=== PATIENT | female | born 1975 | race Caucasian/White ===

== ENCOUNTER 2017-03-27 18:55 | Emergency (ER) | payer MEDICAID, OTHER ==
[~2017-03-27] VITALS: Wt 60.5 kg
[~2017-03-27 18:55] MED LIST: NITR-58 PO
[2017-03-27] MEDS ORDERED: SOD CHLORIDE 0.9% 1,000 ML IV STA (20:59)
[2017-03-27] MEDS ORDERED: ENALAPRILAT 1.25 MG INJ IV ONE (21:00)
[2017-03-27 21:33] LABS: BASOPHILS % 0.1 % (0.0-2.0); EOSINOPHILS # 0.1 10^3/ul (0.0-0.5); EOSINOPHILS % 0.8 % (0.0-7.0); HEMATOCRIT 37.8 % (37.0-47.0); HEMOGLOBIN 12.5 g/dl (12.0-16.0); LYMPHOCYTES % 42.5 % (15.0-51.0); MEAN CORPUSCULAR HEMOGLOBIN 29.2 pg (29.0-33.0); MEAN CORPUSCULAR HGB CONC 33.1 g/dl (32.0-37.0); MEAN CORPUSCULAR VOLUME 88.3 fl (82.0-101.0); MEAN PLATELET VOLUME 11.6 fl (7.4-10.4); MONOCYTE # 0.7 10^3/ul (0.3-0.9); MONOCYTES % 10.1 % (0.0-11.0); NEUTROPHIL # 3.3 10^3/ul (1.6-7.5); NEUTROPHILS % 46.4 % (39.0-77.0); PLATELET COUNT 226 10^3/UL (140-415); RED BLOOD COUNT 4.28 10^6/ul (4.20-5.40); RED CELL DISTRIBUTION WIDTH 13.7 % (11.5-14.5); WHITE BLOOD COUNT 7.1 10^3/ul (4.8-10.8)
[2017-03-27 21:38] LABS: ADD UMIC YES; UR ASCORBIC ACID NEGATIVE (NEGATIVE); UR BILIRUBIN (Dip) NEGATIVE (NEGATIVE); UR BLOOD (Dip) 1+ mg/dL (NEGATIVE); UR CLARITY CLEAR (CLEAR); UR COLOR YELLOW (YELLOW); UR GLUCOSE (Dip) NEGATIVE (NEGATIVE); UR KETONES (Dip) NEGATIVE (NEGATIVE); UR LEUKOCYTE ESTERASE (Dip) NEGATIVE Leu/ul (NEGATIVE); UR NITRITE (Dip) NEGATIVE (NEGATIVE); UR RBC 3 /HPF (0-5); UR SPECIFIC GRAVITY (Dip) 1.015 (1.003-1.030); UR SQUAMOUS EPITHELIAL CELL FEW /HPF (FEW); UR TOTAL PROTEIN (Dip) NEGATIVE (NEGATIVE); UR UROBILINOGEN (Dip) NEGATIVE (NEGATIVE)
[2017-03-27 21:54] LABS: ALBUMIN 3.7 g/dl (3.3-4.9); CALCIUM 9.1 mg/dl (8.4-10.2); CREATININE 0.84 mg/dl (0.44-1.00); POTASSIUM 4.4 mmol/L (3.5-5.1); TOTAL PROTEIN 7.4 g/dl (6.1-8.1)
[2017-03-27 23:01] LABS: FREE T3 3.74 pg/ml (2.77-5.27)
[2017-03-27 23:15] LABS: THYROID STIMULATING HORMONE 2.26 MIU/L (0.465-4.680)
[2017-03-27 23:40] VITALS: BP 128/86; PULSE 65; RESP 16
--- NOTE | 2017-03-28 16:21 | ERD ---
ER Documentation Chief Complaint Chief Complaint numbness both hands/headache x 2 days HPI 41-year-old woman presents with complaints of orange discoloration of the palms and soles. She states she has noticed this discoloration for the last 2 days. She denies excessive oral intake of carrots or other orange vegetables, denies excessive vitamin A or E intake, denies contact with new soaps or dyes, denies weight loss or weight gain, no fevers or chills, no domestic violence, no complaints of chest pain or shortness of breath. Patient also has intermittent paresthesias but states she does not have paresthesias at the moment. ROS All systems reviewed and are negative except as per history of present illness. Medications Home Meds Active Scripts Nitrofurantoin Monohyd Macrocr* (Macrobid*) 100 Mg Capsr, 100 MG PO HS for 7 Days, CAP Prov:OSMIN SHARMA MD 01/13/16 PMhx/Soc Medical and Surgical Hx: pt denies Surgical Hx History of Surgery: Yes (OVARY REMOVAL) Hx Cardiac Disorders: Yes (HTN) Hx Alcohol Use: No Hx Substance Use: No Hx Tobacco Use: No Smoking Status: Never smoker FmHx Family History: No diabetes Physical Exam Vitals Vital Signs Date Time Temp Pulse Resp B/P Pulse Ox O2 Delivery O2 Flow Rate FiO2 03/27/17 23:40 65 16 128/86 98 03/27/17 21:10 149/96 03/27/17 19:01 97.8 78 20 180/109 98 Physical Exam GENERAL: Well-developed, well-nourished, well-hydrated, in no apparent distress , looks nontoxic in appearance HEENT: Moist mucous membranes, pink conjunctiva, no cervical spine tenderness or step-off deformities, no goiter, no jaundice or icterus, extraocular movements intact without pain. No submandibular induration, and no pharyngeal erythema NEURO: Alert and oriented 3, cranial nerves II through XII intact bilaterally, pupils equal round reactive to light, no focal deficits or facial asymmetry, sensation intact distally Strength 5/5 in upper and lower extremities bilaterally CARDIAC: Regular rate and rhythm, no murmurs rubs or gallops LUNGS: Clear bilaterally no wheezing crackles or stridor ABDOMEN: Soft nontender, no guarding, no rigidity, no rebound, no psoas sign no obturator sign. Normoactive bowel sounds SKIN: Warm and dry to touch, no abrasions, contusions, or hematomas, no lacerations, no ecchymosis, no target lesions, and without ulcers EXTREMITIES: No clubbing cyanosis or edema, calves are bilaterally symmetrical, no Homans sign, no popliteal cord sign. Distal pulses equal and bilateral PSYCH: Anxious appearing Result Diagram: 03/27/17212303/27/172123 Results 24 hrs Laboratory Tests Test 03/27/17 20:43 03/27/17 21:24 Urine Color YELLOW Urine Clarity CLEAR Urine pH 6.0 Urine Specific [place] 1.015 Urine Ketones NEGATIVEmg/dL Urine Nitrite NEGATIVEmg/dL Urine Bilirubin NEGATIVEmg/dL Urine Urobilinogen NEGATIVEmg/dL Urine Leukocyte Esterase NEGATIVELeu/ul Urine Microscopic RBC 3/HPF Urine Microscopic WBC 1/HPF Urine Squamous Epithelial Cells FEW/HPF Urine Hemoglobin 1+mg/dL Urine Glucose NEGATIVEmg/dL Urine Total Protein NEGATIVEmg/dl White Blood Count 7.110^3/ul Red Blood Count 4.2810^6/ul Hemoglobin 12.5g/dl Hematocrit 37.8% Mean Corpuscular Volume 88.3fl Mean Corpuscular Hemoglobin 29.2pg Mean Corpuscular Hemoglobin Concent 33.1g/dl Red Cell Distribution Width 13.7% Platelet Count 55365^3/UL Mean Platelet Volume 11.6fl Neutrophils % 46.4% Lymphocytes % 42.5% Monocytes % 10.1% Eosinophils % 0.8% Basophils % 0.1% Nucleated Red Blood Cells % 0.0/100WBC Neutrophils # 3.310^3/ul Lymphocytes # 3.010^3/ul Monocytes # 0.710^3/ul Eosinophils # 0.110^3/ul Basophils # 0.010^3/ul Nucleated Red Blood Cells # 0.010^3/ul Sodium Level 139mmol/L Potassium Level 4.4mmol/L Chloride Level 105mmol/L Carbon Dioxide Level 28mmol/L Anion Gap 10 Blood Urea Nitrogen 16mg/dl Creatinine 0.84mg/dl Glucose Level 92mg/dl Calcium Level 9.1mg/dl Total Bilirubin 0.0mg/dl Direct Bilirubin 0.00mg/dl Indirect Bilirubin 0.0mg/dl Aspartate Amino Transf (AST/SGOT) 18IU/L Alanine Aminotransferase (ALT/SGPT) 31IU/L Alkaline Phosphatase 67IU/L Total Protein 7.4g/dl Albumin 3.7g/dl Globulin 3.70g/dl Albumin/Globulin Ratio 1.00 Lipase 198U/L Thyroid Stimulating Hormone (TSH) 2.260MIU/L Free Thyroxine 1.00ng/dl Free Triiodothyronine (T3) pg/mL 3.74pg/ml Current Medications Medications (Trade) Dose Ordered Sig/Yesy Route PRN Reason Start Time Stop Time Status Last Admin Dose Admin Sodium Chloride (NS) 1,000 ml @ 1,000 mls/hr Q1H STAT IV 03/27/17 20:59 03/27/17 21:58 DC 03/27/17 21:44 Enalaprilat (Vasotec Iv) 1.25 mg ONCE ONCE IV 03/27/17 21:00 03/27/17 21:02 DC 03/27/17 21:57 Procedures/MDM IV line was established patient was placed on cardiac care nurse rhythm strip revealed a sinus rhythm at about 80 bpm with upright P and T waves. Patient was afebrile I administered 1 L normal saline intravenously and enalapril 1.25 mg IV 1 for initial hypotension. CBC and electrolytes were normal, liver function tests normal, thyroid panel normal, urinalysis negative for infection. Differential diagnoses considered, included but not limited to acute coronary syndrome, pulmonary embolism, aortic dissection, abdominal aortic aneurysm, sepsis, stroke, meningitis, encephalitis, pneumonia, appendicitis, cholecystitis , bowel obstruction, pyelonephritis, nephrolithiasis, cystitis, as well as metabolic, hematologic, and electrolyte abnormalities. As well as abscess, cellulitis, fractures, and dislocations. Patient feels much better at this time, and vital signs are normal, symptoms have improved and blood pressure has fallen to within normal limits. I did give strict instructions to return to the ED if symptoms continue or worsen, patient will otherwise follow-up with primary care physician. Patient understood instructions and agreed to plan. Disclaimer: Inadvertent spelling and grammatical errors are likely due to EHR/ dictation software use and do not reflect on the overall quality of patient care. Also, please note that the electronic time recorded on this note does not necessarily reflect the actual time of the patient encounter. Departure Diagnosis: Primary Impression: Hypertension Hypertension type: essential hypertension Qualified Code: I10 - Essential hypertension Condition: Good Patient Instructions: Normal Exam, (Child) (Adult) Referrals: RUSSELL TOVAR (PCP) LEELA SHAY MD Mar 28, 2017 16:21
== END 2017-03-27 23:41 | disposition home or self-care (01) ==
LOC: E/R 18:55
DX: I10 Essential (primary) hypertension (principal)
CPT/HCPCS: 36415; 80053; 81001; 83690; 84439; 84443; 84481; 85025; 96374; J7030; Z7502; Z7610

== ENCOUNTER 2018-04-02 10:00 | Emergency (ER) | END 2018-04-02 11:15 | disposition home or self-care (01) ==